=== PATIENT | male | born 1995 | race Caucasian/White ===

== ENCOUNTER → 2020-04-07 12:14 | Outpatient (CLI) | payer BC, SELFPAY ==
[2020-04-07 15:03] LABS: Basophils % 0.3 % (0.1-2.0); Eosinophils # 0.1 K/mm3 (0.0-0.4); Eosinophils % 1.7 % (0.1-12.0); Hematocrit 47.9 % (42.0-52.0); Hemoglobin 16.6 g/dL (14.1-18.0); Lymphocytes # 1.7 K/mm3 (0.7-4.5); Lymphocytes % 24.1 % (10-50); Mean Corpuscular HGB Conc 34.7 g/dL (31.8-35.4); Mean Corpuscular Hemoglobin 29.8 pg (27.0-31.2); Mean Corpuscular Volume 86.1 fl (80-94); Mean Platelet Volume 11.4 fl (7.4-10.4); Monocytes # 0.6 K/mm3 (0.1-1.0); Monocytes % 8.1 % (1.7-9.3); Neutrophils # 4.6 K/mm3 (1.8-7.8); Neutrophils % 65.8 % (37.0-80.0); Platelet Count 138 K/mm3 (142-424); Red Blood Count 5.56 M/mm3 (4.60-6.20); Red Cell Distribution Width 12.8 % (11.5-17.5); White Blood Count 6.9 K/mm3 (4.8-10.8)
[2020-04-08 15:43] LABS: Covid-19 Nasal PCR Sendout Lex Not Detected
== END ==
PROVIDERS: PCP Family Medicine; Visit Provider Family Medicine
DX: Z03.818 Encounter for observation for suspected exposure to other biological agents ruled out (principal)
CPT/HCPCS: 36415; 85025; U0004

== ENCOUNTER 2021-01-06 12:02 | Emergency (ER) | payer BC, SELFPAY ==
[2021-01-06 12:40] VITALS: BP 122/76; PULSE 91; RESP 17; TEMP 36.9; O2SAT 98; BMI 27.8
--- NOTE | 2021-01-06 13:16 | HMH.EDUTC ---
[facility] [place] Clinical Impression: Exposure to COVID-19 virus Disposition: Home, Self-Care Condition on Discharge: Good Instructions: DI for COVID-19 (Suspected or Confirmed ), Coronavirus Disease 2019, Preventing the Spread of Coronavirus Discharge Instructions Additional Instructions: *Monitor Temp, Over the counter Motrin or Tylenol as directed/as needed Tylenol every 4 hours and Motrin every 6 hours (as long as your family doctor has told you that you can take it) for fever or pain. and straight to ER if unable to lower temp less than 101.0 after medication given *Warm salt water gargles may help to soothe the throat *Throat Lozenges *Warm fluids like tea with honey may help to soothe the throat *Sleep elevated *Humidifier/Vaporizer Follow up IMMEDIATELY for new or worsening symptoms or no Noticeable improvement over the next 48-72 hours. 911 for difficulty breathing or swallowing You were tested for today for COVID19 your test result should be back in the next 24-48 hours, you may call to the [facility] to see if your test results are back in the next 48 hours [phone] [facility] hours are 9am-9pm You was given a handout with instructions for Self Quarantine and Self isolation for while you wait on test results and what to do if they are positive If you are positive the Health Dept will be contacting you also Make sure to take your Vitamins Vit. C Vit D and Zinc if you can take them Referrals: Chris Connelly MD [Primary Care Provider] - As needed Forms: Work/School Release Time of Disposition: 13:17 Medical Decision Making - Cheikh Inquiry Pt receiving controlled substance: No Cheikh was queried for this patient: No Vital Signs: 01/06/21 12:40 Temperature 98.4 F Temperature Source Oral Pulse Rate [Right Brachial] 91 H Respiratory Rate 17 Blood Pressure [Right Arm] 122/76 Blood Pressure Mean [Right Arm] 91 Blood Pressure Source [Right Arm] Automatic Cuff Blood Pressure Position [Right Arm] Sitting 02 Sat by Pulse Oximetry 98 Oxygen Delivery Method Room Air Orders (Tests/Meds): ORDERS Category Date Time Status Covid-19 Nasal PCR ([facility]) Routine Lab 01/06/21 12:07 Ordered [facility] [place] - General Stated complaint: covid exposure Time Seen by Provider: 01/06/21 13:16 Mode of Arrival: Ambulatory Source of Information: Patient Limitations: No Limitations Description of Symptoms (Recalled from Triage Doc. by RN): COVID TEST D/T EXPOSURE. DENIES SYMPTOMS HEENT Symptoms (Recalled from RN notes): No Resp Symptoms (Recalled from RN notes): No Skin Symptoms (Recalled from RN notes): No MS Symptoms (Recalled from RN notes): No Functional Status (Recalled from RN notes): WNL - History of Present Illness Provider Complaint: Patient states that just tested positive for COVID State that he is not having any symptoms but due to close contact they recommended that he come and get tested - Related Data Allergies Allergy/AdvReac Type Severity Reaction Status Date / Time cefaclor [From Ceclor] Allergy Verified 01/06/21 13:11 Cephalosporins Allergy Verified 01/06/21 13:11 clarithromycin [From Biaxin] Allergy Verified 01/06/21 13:11 Sulfa (Sulfonamide Allergy Verified 01/06/21 13:11 Antibiotics) sulfamethoxazole Allergy Verified 01/06/21 13:11 [From Septra] trimethoprim [From Septra] Allergy Verified 01/06/21 13:11 - Worker's Comp Is this a Worker's Comp case?: No [facility] History - Hepatitis A Screen Drug use history?: No High risk sexual behaviors?: No History of sexually transmitted infection?: No Currently employed?: No Childcare worker?: No Do you have indoor plumbing?: Yes Do you have electricity?: Yes Attestation statement:: This patient has been screened for Hepatitis A risk factors. I have reviewed the patient's past medical history: Yes ROS Obtained: Yes All systems reviewed & no additional complaints, Yes Systems reviewed as appropriate & no additional complaints
[2021-01-06 13:31] VITALS: BP 122/76; PULSE 91; RESP 17; TEMP 36.9; O2SAT 98
== END 2021-01-06 13:34 | disposition home or self-care (01) ==
PROVIDERS: Emergency Provider Nurse Practitioner; PCP Family Medicine
DX: Z20.822 Contact with and (suspected) exposure to COVID-19 (principal)
CPT/HCPCS: 99202; G0463; U0003

== ENCOUNTER 2021-01-17 12:33 | Emergency (ER) | payer BC, SELFPAY ==
[2021-01-17 12:59] VITALS: BP 119/74; PULSE 69; RESP 18; TEMP 36.8; O2SAT 97; BMI 27.8
--- NOTE | 2021-01-17 13:30 | HMH.EDUTC ---
[facility] [place] Impression: Bee sting reaction Qualifiers: Encounter type: initial encounter Injury intent: accidental or unintentional Qualified Code(s): T63.441A - Toxic effect of venom of bees, accidental (unintentional), initial encounter Disposition: Home, Self-Care Condition on Discharge: Good Instructions: Insect Bites and Stings Additional Instructions: Don't start the oral steroids until tomorrow. Don't put the topical steroids (triamcinolone) on your face or your groin. Follow up with your regular doctor. GO TO THE ER FOR ANY WORSENING SYMPTOMS OR CONCERNS Prescriptions: methylPREDNISolone [Medrol] 4 mg PO DIRECTED 6 Days #21 tab.[email or web address] Transmission Status: Received by [id number] Triamcinolone Acetonide 1 applicatio TP TIDP PRN 7 Days #1 tube PRN Reason: Itching Transmission Status: Received by [id number] Referrals: Chris Connelly MD [Primary Care Provider] - Time of Disposition: 13:33 Medical Decision Making - Medical Records Medical records reviewed: No: I reviewed the patient's medical records. - Cheikh Inquiry Pt receiving controlled substance: No Vital Signs: 01/17/21 12:59 01/17/21 13:34 Temperature 98.3 F 98 F Temperature Source Oral Pulse Rate 69 Pulse Rate [Left] 69 Respiratory Rate 18 16 Blood Pressure 117/79 Blood Pressure [Right Arm] 119/74 Blood Pressure Mean [Right Arm] 89 02 Sat by Pulse Oximetry 97 Orders (Tests/Meds): ED MEDICATIONS Discontinued Medications Generic Name Dose Route Start Last Admin Trade Name Freq PRN Reason Stop Dose Admin Methylprednisolone Sodium Succinate 125 mg 01/17/21 13:09 01/17/21 13:17 Methylprednisolone Sod Succ 125mg Vial IM 01/17/21 13:10 125 mg ONCE ONE Administration [facility] [place] General Stated complaint: allergic reaction to wasp sting rt elbow Time Seen by Provider: 01/17/21 13:30 Mode of Arrival: Ambulatory Source of Information: Patient Limitations: No Limitations Description of Symptoms (Recalled from Triage Doc. by RN): pt was stung by a hornet yesterday on his R elbow. he has swelling and redness around the entire elbow. HEENT Symptoms (Recalled from RN notes): No Resp Symptoms (Recalled from RN notes): No Skin Symptoms (Recalled from RN notes): Yes (skin, red swollen and warm to touch on R elbow) MS Symptoms (Recalled from RN notes): No Functional Status (Recalled from RN notes): na - History of Present Illness Provider Complaint: He was stung by a bee yesterday evening on his right elbow. He woke up this morning and his elbow is very swollen and red and itching. He denies any history of having reactions to bees like this. He denies any shortness of breath or other symptoms - Related Data Previous Rx's Medication Instructions Recorded Triamcinolone Acetonide 1 applicatio TP TIDP PRN 7 Days #1 01/17/21 tube methylPREDNISolone [Medrol] 4 mg PO DIRECTED 6 Days #21 01/17/21 tab.[email or web address] Allergies Allergy/AdvReac Type Severity Reaction Status Date / Time cefaclor [From Ceclor] Allergy Verified 01/06/21 13:11 Cephalosporins Allergy Verified 01/06/21 13:11 clarithromycin [From Biaxin] Allergy Verified 01/06/21 13:11 Sulfa (Sulfonamide Allergy Verified 01/06/21 13:11 Antibiotics) sulfamethoxazole Allergy Verified 01/06/21 13:11 [From Septra] trimethoprim [From Septra] Allergy Verified 01/06/21 13:11 - Worker's Comp Is this a Worker's Comp case?: No [facility] History - Hepatitis A Screen Drug use history?: No High risk sexual behaviors?: No History of sexually transmitted infection?: No Currently employed?: No Childcare worker?: No Do you have indoor plumbing?: Yes Do you have electricity?: Yes Attestation statement:: This patient has been screened for Hepatitis A risk factors. I have reviewed the patient's past medical history: Yes ROS Obtained: Yes All systems reviewed & no additional complaints - Constitut
[2021-01-17 13:34] VITALS: BP 117/79; PULSE 69; RESP 16; TEMP 36.6
== END 2021-01-17 13:37 | disposition home or self-care (01) ==
PROVIDERS: Emergency Provider Nurse Practitioner Family; PCP Family Medicine
DX: T63.441A Toxic effect of venom of bees, accidental (unintentional), initial encounter (principal)
CPT/HCPCS: 96372; 99202; G0463

== ENCOUNTER 2021-01-23 10:18 | Emergency (ER) | payer BC, SELFPAY ==
[2021-01-23 12:10] VITALS: BP 125/79; PULSE 82; RESP 20; TEMP 37; O2SAT 100; BMI 27.8
--- NOTE | 2021-01-23 12:19 | HMH.EDUTC ---
[facility] [place] Clinical Impression: Strep throat Disposition: Home, Self-Care Condition on Discharge: Good Instructions: DI for Strep Throat, Amoxicillin, DI for COVID-19 (Suspected or Confirmed ) Additional Instructions: *Monitor Temp, Over the counter Motrin or Tylenol as directed/as needed Tylenol every 4 hours and Motrin every 6 hours (as long as your family doctor has told you that you can take it) for fever or pa-in. and straight to ER if unable to lower temp less than 101.0 after medication given *Warm salt water gargles may help to soothe the throat *Throat Lozenges *Warm fluids like tea with honey may help to soothe the throat *Sleep elevated *Humidifier/Vaporizer Your throat swab was sent for culture. Those results are typically sent to your primary care. Be sure to follow up in 2-3 days with your family doctor/primary care physician if no improvement so they can review those result and treat if necessary. If you don?t have a primary care doctor, I recommend you get one but in the mean time, you will have to return to a walk in clinic Follow up IMMEDIATELY for new or worsening symptoms or no Noticeable improvement over the next 48-72 hours. 911 for difficulty breathing or swallowing You were tested for today for COVID19 your test result should be back in the next 24-48 hours, Check the [facility] Portal to see if your test results are back in the next 48 it may say detected that means your result is positive.You was given handout instructions on how log on and see your results. If you do not have internet access you may call the [facility] for your results [phone] You was given a handout with instructions for Self Quarantine and Self isolation for while you wait on test results and what to do if they are positive If you are positive the Health Dept will be contacting you also Make sure to take your Vitamins Vit. C Vit D and Zinc if you can take them Prescriptions: Amoxicillin [Amoxicillin 875MG Tab] 875 mg PO Q12H #20 tab Transmission Status: Pending to [facility]/pharmacy #[id number] Referrals: Chris Connelly MD [Primary Care Provider] - As needed Forms: Work/School Release Time of Disposition: 12:31 Medical Decision Making - Cheikh Inquiry Pt receiving controlled substance: No Cheikh was queried for this patient: No Vital Signs: 01/23/21 12:10 Temperature 98.6 F Temperature Source Oral Pulse Rate [Right Brachial] 82 Respiratory Rate 20 Blood Pressure [Right Arm] 125/79 Blood Pressure Mean [Right Arm] 94 Blood Pressure Source [Right Arm] Automatic Cuff Blood Pressure Position [Right Arm] Sitting 02 Sat by Pulse Oximetry 100 Oxygen Delivery Method Room Air - Lab Data Lab results reviewed: Yes: I reviewed the patient's lab results. Lab Results 01/23/21 12:17: Strep Scn Rapid Clinic Positive A Orders (Tests/Meds): ORDERS Category Date Time Status Covid-19 Nasal PCR ([facility]) Routine Lab 01/23/21 12:10 Received Medical Decision Narrative: Patient state that he is allergic to Cephalosporins but has taken Amoxicillin in the past without reaction or complications [facility] [place] HPI - General Stated complaint: covid test Time Seen by Provider: 01/23/21 12:20 Mode of Arrival: Ambulatory Source of Information: Patient Limitations: No Limitations Description of Symptoms (Recalled from Triage Doc. by RN): PATIENT C/O SORE THROAT, COUGH, AND CHEST CONGESTION SINCE SATURDAY HEENT Symptoms (Recalled from RN notes): Yes Resp Symptoms (Recalled from RN notes): Yes Skin Symptoms (Recalled from RN notes): No MS Symptoms (Recalled from RN notes): No Functional Status (Recalled from RN notes): WNL - History of Present Illness Provider Complaint: Patient state that he has been having sore throat for about a week that has not got any better state that today he was having sore throat, cough and feeling like he had a little chest congestion but not coughing anything up so he came in to get checked - Related Data
[2021-01-23 12:21] LABS: UTC Strep Screen (Rapid) Positive (Negative)
[2021-01-23 12:33] VITALS: BP 125/79; PULSE 82; RESP 20; TEMP 37; O2SAT 100
--- NOTE | 2021-01-24 12:45 | PC.NURSE ---
notified pt of positive results
== END 2021-01-23 12:39 | disposition home or self-care (01) ==
PROVIDERS: Emergency Provider Nurse Practitioner; PCP Family Medicine
DX: J02.0 Streptococcal pharyngitis (principal); U07.1 COVID-19; Z88.2 Allergy status to sulfonamides
CPT/HCPCS: 87880; 99203; G0463; U0003

== ENCOUNTER → 2021-05-30 13:01 | Outpatient (CLI) | payer BC, SELFPAY ==
[2021-05-30 13:57] LABS: Basophils % 0.8 % (0.1-2.0); Eosinophils # 0.1 K/mm3 (0.0-0.4); Eosinophils % 2.7 % (0.1-12.0); Hematocrit 47.4 % (42.0-52.0); Hemoglobin 15.6 g/dL (14.1-18.0); Lymphocytes # 1.6 K/mm3 (0.7-4.5); Lymphocytes % 30.6 % (10-50); Mean Corpuscular HGB Conc 32.8 g/dL (31.8-35.4); Mean Corpuscular Hemoglobin 29.1 pg (27.0-31.2); Mean Corpuscular Volume 88.8 fl (80-94); Monocytes # 0.3 K/mm3 (0.1-1.0); Monocytes % 6.2 % (1.7-9.3); Neutrophils # 3.1 K/mm3 (1.8-7.8); Neutrophils % 59.7 % (37.0-80.0); Platelet Count 179 K/mm3 (142-424); Red Blood Count 5.34 M/mm3 (4.60-6.20); Red Cell Distribution Width 13.4 % (11.5-17.5); White Blood Count 5.2 K/mm3 (4.8-10.8)
[2021-05-30 14:22] LABS: Alanine Aminotransferase 66 U/L (12-78); Albumin Level 4.5 g/dl (3.5-5.0); Albumin/Globulin Ratio 1.6 (1.1-1.8); Alkaline Phosphatase 85 U/L (38-126); Anion Gap 12.4 mEq/L (5-15); Aspartate Amino Transferase 37 U/L (17-59); Bilirubin,Total 0.7 mg/dl (0.2-1.3); Blood Urea Nitrogen 15 mg/dl (9-20); Calcium 9.6 mg/dl (8.4-10.2); Carbon Dioxide 29 mmol/L (22.0-30.0); Chloride 101 mmol/L (98-107); Estimated Glomerular Filt Rate 100 ml/min (>60); GFR (African American) 122 ML/MIN (>60); Globulin 2.8 g/dL (1.3-3.2); Glucose 79 mg/dl (74-100); Potassium 4.4 mmoL/L (3.5-5.1); Sodium 138 mmol/L (136-145); Total Protein,Serum 7.3 g/dl (6.3-8.2)
[2021-05-30 14:39] LABS: 25-OH Vitamin D, Total 46.1 ng/mL (30-100)
[2021-05-30 14:40] LABS: Free T4 (Free Thyroxine) 1.19 ng/dl (0.78-2.19)
[2021-05-30 14:53] LABS: Thyroid Stimulating Hormone 0.93 uIU/mL (0.465-4.68)
[2021-06-03 00:07] LABS: F017-IgE Hazelnut (Filbert) 1.57 kU/L (Class III); F024-IgE Shrimp <0.10 kU/L (Class 0); F147-IgE Flounder <0.10 kU/L (Class 0); F256-IgE Walnut 0.64 kU/L (Class II); F338-IgE Scallop 0.18 kU/L (Class 0/I); I001-IgE Honey Bee 0.35 kU/L (Class I); I002-IgE Hornet, White Face 0.47 kU/L (Class I); Immunoglobulin E, Total 115 IU/mL (6-495)
== END ==
PROVIDERS: Visit Provider Allergy & Immunology
DX: Z01.82 Encounter for allergy testing (principal)
CPT/HCPCS: 36415; 80053; 82306; 82785; 83520; 84439; 84443; 85025; 86003; 86352

== ENCOUNTER 2023-01-08 12:11 | Emergency (ER) | payer BC, SELFPAY ==
[2023-01-08 12:12] VITALS: BP 119/86; PULSE 76; RESP 18; TEMP 37.2; O2SAT 98; BMI 30.7
--- NOTE | 2023-01-08 13:03 | EXP.UTC ---
Discharge Plan Disposition Patient Disposition: Home, Self-Care Condition: Good Prescriptions Prescriptions: New colchicine (gout) 0.6 mg capsule 0.6 mg PO DIRECTED Qty: 6 0RF Rx Instructions: Take 2 of the 0.6mg capsules now, wait one hour then take 1 of the 0.6mg capsules and wait 72 hours and may repeat regimen if still having symptoms No Action triamcinolone acetonide 15 GM cream 1 applicatio TP TIDP PRN (Reason: Itching) 7 Days Qty: 1 0RF Rx Instructions: 0.025% methylprednisolone 4 MG tablets,dose pack 4 mg PO DIRECTED 6 Days Qty: 21 0RF amoxicillin 875 MG tablet 875 mg PO Q12H Qty: 20 0RF Referrals Follow up/Referrals: Chris Connelly MD [Primary Care Provider] - See instructions Activity Restrictions/Add. Instructions Additional Instructions/Restrictions: Take medication as prescribed Follow up with your Family Doctor if symptoms persist Return if needed Straight to ER if any life threatening symptoms Clinical Impressions Clinical Impression: Gout attack Qualifiers: Gout site: toe Gout etiology: unspecified cause Laterality: right Qualified Code(s): M10.9 - Gout, unspecified Stand Alone Forms Stand Alone Forms: Work/School Release Instructions Patient Instructions: Gout, DI for Gout Discharge ED Provider: Petrona Whitman [facility] General Stated complaint: right foot big toe pain, no accident Mode of Arrival: Ambulatory Source of Information: Patient Limitations: No Limitations Time Seen by Provider: 01/08/23 13:03 Description of Symptoms (Recalled from Triage Doc. by RN): Complaint of right big toe pain for 2 days. HEENT Symptoms (Recalled from RN notes): No Resp Symptoms (Recalled from RN notes): No Skin Symptoms (Recalled from RN notes): No MS Symptoms (Recalled from RN notes): Yes Functional Status (Recalled from RN notes): wnl History of Present Illness Provider Complaint: Patient states that he has been having pain swelling and redness in his right great toe thinks he may have gout Denies known injury States that toe is sore and hurts with movement Related Data Previous Rx's Medication Instructions Recorded methylprednisolone 4 mg tablets in 4 mg PO DIRECTED 6 days ##21 01/17/21 a dose pack triamcinolone acetonide 0.025 % 1 applicatio TP TIDP PRN Itching 7 01/17/21 topical cream days #1 tube amoxicillin 875 mg tablet 875 mg PO Q12H #20 tabs 01/23/21 colchicine (gout) 0.6 mg capsule 0.6 mg PO DIRECTED #6 caps 01/08/23 Allergies Allergy/AdvReac Type Severity Reaction Status Date / Time cefaclor [From Ceclor] Allergy Verified 01/06/21 13:11 Cephalosporins Allergy Verified 01/06/21 13:11 clarithromycin [From Biaxin] Allergy Verified 01/06/21 13:11 Sulfa (Sulfonamide Allergy Verified 01/06/21 13:11 Antibiotics) sulfamethoxazole Allergy Verified 01/06/21 13:11 [From Septra] trimethoprim [From Septra] Allergy Verified 01/06/21 13:11 Worker's Comp Is this a Worker's Comp case?: No [facility] Disclaimer: The information contained in this section may have been updated after the patient was seen, as this information can be updated by other users. Social History Smoking Status: Unknown if ever smoked alcohol intake: current current occupational status: employed Travel in the last 8 weeks: None ROS Obtained: Yes All systems reviewed & no additional complaints except as documented and Yes Systems reviewed as appropriate & no additional complaints except as documented Constitutional Constitutional: Reports system reviewed and no additional complaints, except as documented, Reports as per HPI and Denies fever(s) ENT Ears, Nose, Mouth, and Throat: Reports system reviewed and no additional complaints, except as documented and Reports as per HPI Cardiovascular Cardiovascular: Reports system reviewed and no additional complaints, except as documented and Reports as per HPI Respiratory Respiratory: Reports syst
[2023-01-08 14:28] VITALS: BP 119/86; PULSE 76; RESP 18; TEMP 37.2; O2SAT 98
== END 2023-01-08 14:29 | disposition home or self-care (01) ==
PROVIDERS: Emergency Provider Nurse Practitioner; PCP Family Medicine
DX: M10.071 Idiopathic gout, right ankle and foot (principal)
CPT/HCPCS: 84550; 96372; 99212; 99214; G0463

== ENCOUNTER → 2024-02-03 07:32 | Outpatient (CLI) | payer BC, SELFPAY | LOC: SL 07:33 | PROVIDERS: PCP Family Medicine; Visit Provider Family Medicine | DX: G47.33 Obstructive sleep apnea (adult) (pediatric) (principal); G47.36 Sleep related hypoventilation in conditions classified elsewhere | CPT/HCPCS: G0399 ==

== ENCOUNTER 2024-04-29 07:59 | Emergency (ER) | payer BC, SELFPAY ==
[2024-04-29 08:05] VITALS: BP 130/82; PULSE 71; RESP 20; TEMP 36.6; O2SAT 96; BMI 35.2
--- NOTE | 2024-04-29 08:35 | ED_ITS ---
Discharge Plan Disposition Patient Disposition: Home, Self-Care Condition: Good Prescriptions Prescriptions: New methylprednisolone 4 mg Tablets,Dose Pack 4 mg PO DIRECTED 6 Days Qty: 21 1RF Rx Instructions: Take 1 pack as directed for 6 days No Action omeprazole 40 mg capsule,delayed release(DR/EC) 40 mg PO BID Patient Comments: TAKE 1 CAPSULE BY MOUTH TWICE A DAY levetiracetam 750 mg tablet 750 mg PO DAILY Patient Comments: TAKE 1 TABLET BY MOUTH EVERY 12 HOURS FOR 90 DAYS 90 DAYS colchicine 0.6 mg tablet 0.6 mg PO DAILY Patient Comments: TAKE 1 TABLET BY MOUTH EVERY DAY duloxetine 60 mg capsule,delayed release(DR/EC) 60 mg PO DAILY Patient Comments: TAKE 1 CAPSULE BY MOUTH EVERY DAY Referrals Follow up/Referrals: Chris Connelly MD [Primary Care Provider] - See instructions Activity Restrictions/Add. Instructions Additional Instructions/Restrictions: Rest the extremity, aElevate the extremity as tolerated while you are resting. Take the medications as prescribed. Don't start the oral steroids (medrol dose pack) until tomorrow. Follow up with your regular doctor. GO TO THE ER FOR ANY WORSENING SYMPTOMS Clinical Impressions Clinical Impression: Gout attack Qualifiers: Gout site: toe Gout etiology: unspecified cause Laterality: right Qualified Code(s): M10.9 - Gout, unspecified Instructions Patient Instructions: Gout, DI for Gout, Ketorolac Injection, Dexamethasone Injection Print Language Print Language: French Discharge ED Provider: Obey Gudino [facility] General Stated complaint: poss. gout left foot Mode of Arrival: Ambulatory Source of Information: Patient Limitations: No Limitations Time Seen by Provider: 04/29/24 08:35 Description of Symptoms (Recalled from Triage Doc. by RN): PATIENT C/O GOUT FLARE-UP TO LEFT FOOT THAT STARTED LAST NIGHT HEENT Symptoms (Recalled from RN notes): No Resp Symptoms (Recalled from RN notes): No Skin Symptoms (Recalled from RN notes): No MS Symptoms (Recalled from RN notes): Yes Functional Status (Recalled from RN notes): WNL Related Data Home Medications ?Medication ?Instructions ?Recorded ?Confirmed colchicine 0.6 mg tablet 0.6 mg PO DAILY 04/29/24 04/29/24 duloxetine 60 mg capsule,delayed 60 mg PO DAILY 04/29/24 04/29/24 release levetiracetam 750 mg tablet 750 mg PO DAILY 04/29/24 04/29/24 omeprazole 40 mg capsule,delayed 40 mg PO BID 04/29/24 04/29/24 release Previous Rx's ?Medication ?Instructions ?Recorded methylprednisolone 4 mg tablets in 4 mg PO DIRECTED 6 days #21 tabs 04/29/24 a dose pack Allergies Allergy/AdvReac Type Severity Reaction Status Date / Time cefaclor (From Ceclor) Allergy Verified 01/06/21 13:11 Cephalosporins Allergy Verified 01/06/21 13:11 clarithromycin (From Biaxin) Allergy Verified 01/06/21 13:11 Sulfa (Sulfonamide Allergy Verified 01/06/21 13:11 Antibiotics) sulfamethoxazole (From Allergy Verified 01/06/21 13:11 Septra) trimethoprim (From Septra) Allergy Verified 01/06/21 13:11 Worker's Comp Is this a Worker's Comp case?: No [facility] Disclaimer: The information contained in this section may have been updated after the patient was seen, as this information can be updated by other users. Medical History (Updated 04/29/24 @ 08:54 by Obey Gudino APRN) Seizure disorder Social History (Updated 01/08/23 @ 15:20 by Petrona Whitman APRN) Smoking Status: Unknown if ever smoked alcohol intake: current alcohol intake frequency: a few times a week current occupational status: employed Travel in the last 8 weeks: None ROS Obtained: Yes All systems reviewed & no additional complaints except as documented Constitutional Constitutional: Denies chills and Denies fever(s) Eyes Eyes: Denies eye discharge ENT Ears, Nose, Mouth, and Throat: Denies dizziness, Denies otalgia and Denies sore throat Cardiovascular Cardiovascular: Denies chest pain Respiratory Respiratory: Denies shortness of breath, Denies chest congestion, Denies cough, Denies stridor and Denies wheezing Gastrointestinal Gastrointestingal: Denies nausea or vomiting Musculoskeletal Musculoskeletal: Reports as per HPI Integumentary/Breasts Skin/Breast: Denies rash Neurologic Neurologic: Denies dizziness and Denies paresthesias Allergic/Immunologic Allergic/Immunologic: Denies wheezing Physical Exam General General appearance: alert and in no apparent distress Head Head exam: atraumatic, normocephalic and normal inspection Eye Eye exam: Present normal appearance, PERRL and EOMI ENT ENT exam: Present normal exam, normal oropharynx, mucous membranes moist, TM's normal bilaterally and normal external ear exam Neck Neck exam: Present normal inspection, full ROM and trachea midline; Absent men ingismus or lymphadenopathy Chest Chest inspection: Present normal inspection and symmetric chest wall rise; Absent tenderness Respiratory Respiratory exam: Present normal lung sounds bilaterally; Absent respiratory distress Cardiovascular Cardiovascular exam: Present regular rate and normal rhythm; Absent JVD Abdominal Exam Abdominal exam: Present soft and normal bowel sounds; Absent distention, tend erness or guarding Extremities Exam Extremities exam: Present normal inspection, full ROM and normal capillary refill; Absent calf tenderness Back Exam Back exam: Present normal inspection; Absent tenderness Neurological Exam Neurological exam: Present alert and oriented X3 Psychiatric Psychiatric exam: Present normal affect and normal mood Skin Skin exam: Present warm, dry, intact and normal color Lymphatic Lymphatic Findings: no adenopathy Medical Decision Making Medical Records Medical records reviewed: No I reviewed the patient's medical records. Screening: Per USPSTF and CDC recommendations, given the prevalence of disease in our region, it is our hospital?s policy to screen for HIV and viral Hepatitis for all patients aged 18 and over and those with ongoing risk factors. Cheikh Inquiry Pt receiving controlled substance: No Vital Signs: 04/29/24 08:05 Temperature 97.9 F Temperature Source Oral Pulse Rate [Left Brachial] 71 Respiratory Rate 20 Blood Pressure [Left Arm] 130/82 Blood Pressure Mean [Left Arm] 98 Blood Pressure Source [Left Arm] Automatic Cuff Blood Pressure Position [Left Arm] Sitting 02 Sat by Pulse Oximetry 96 Oxygen Delivery Method Room Air
[2024-04-29] MEDS: DEXAMETHASONE 4MG/ML 1ML VIAL 10 MG IM (08:45)
[2024-04-29] MEDS: KETOROLAC 60MG/2ML VIAL 60 MG IM (08:45)
[2024-04-29 08:55] VITALS: BP 130/82; PULSE 71; RESP 20; TEMP 36.6; O2SAT 96
== END 2024-04-29 08:57 | disposition home or self-care (01) ==
PROVIDERS: Emergency Provider Nurse Practitioner Family; PCP Family Medicine
DX: M10.9 Gout, unspecified (principal); M79.672 Pain in left foot
CPT/HCPCS: 96372; 99212; G0381; J1100; J1885